=== PATIENT | female | born 2005 | race Caucasian/White ===

== ENCOUNTER 2025-05-30 14:23 | Emergency (ER) | payer MEDICAID ==
[~2025-05-30] VITALS: Ht 162.6 cm; Wt 70.0 kg
[2025-05-30 14:37] VITALS: O2SAT 97
[2025-05-30] MEDS: ACETAMINOPHEN 325MG TABLET PO ONE (15:34)
[2025-05-30] MEDS ORDERED: TOPUD MT (15:44)
[2025-05-30 16:30] VITALS: BP 107/70; PULSE 97; RESP 18; TEMP 36.9; O2SAT 99
== END 2025-05-30 16:39 | disposition home or self-care (01) ==
LOC: ER 14:23
DX: S99.921A Unspecified injury of right foot, initial encounter (principal); W19.XXXA Unspecified fall, initial encounter; Y93.89 Activity, other specified; Y92.89 Other specified places as the place of occurrence of the external cause; Y99.8 Other external cause status
CPT/HCPCS: 73610; 73630; 99284